=== PATIENT | male | born 1960 | race Caucasian/White ===

== ENCOUNTER 2018-05-16 16:34 | Inpatient (IN) ==
[2018-05-16] MEDS ORDERED: LORazepam 0.5 MG Tablet PO PRN (21:03)
[2018-05-16] MEDS ORDERED: LORazepam 1 MG Tablet PO PRN (21:03)
[2018-05-16] MEDS ORDERED: Aluminum/Magnesium/Simethacone Susp 30 ML UDC PO PRN (21:03)
[2018-05-16] MEDS: Acetaminophen 325 MG Tablet PO PRN (21:29)
--- NOTE | 2018-05-17 11:09 | P.HPPSY ---
Provisional Diagnosis Admission Date: May 16, 2018 17:49 [place] I.: Adjustment disorder with depressed mood Competence Certification of Person's Competence To Provide Express and Informed Consent I have personally examined Marshall Pierce, a person being served at [facility] on, May 17, 2018 1055. Express and informed consent means consent voluntarily given in writing, by a competent person, after sufficient explanation and disclosure of the subject matter involved to enable the person to make a knowing and willful decision without any element of force, fraud, deceit, duress, or other form of constraint or coercion. This person is 18 years of age or older, is not now known to be incompetent to consent to treatment with a guardian advocate, and does not have a health care surrogate or proxy currently making medical treatment decisions. I have found this person to be one of the following: [xxx] Competent to provide express and informed consent, as defined above, for voluntary admission to this facility and is competent to provide express and informed consent for treatment. He/she has the consistent capacity to make well reasoned, willful, and knowing decisions concerning his or her medical or mental health treatment. The person fully and consistently understands the purpose of the admission for examination/placement and is fully capable of personally exercising all rights assured under [place] Incompetent to provide express and informed consent to voluntary admission, and this is incompetent to provide express and informed consent to treatment. The person must be transferred to involuntary status and a petition for a guardian advocate filed with the Circuit Court. [] Refusing to provide express and informed consent to voluntary admission but is competent to provide express and informed consent for treatment. The person must be discharged or transferred to involuntary status. Form shall be completed within 24 hours of a person's arrival at the receiving facility and filed in the clinical record of each person: 1. Admitted on a voluntary basis 2. Permitted to provide express and informed consent to his/her own treatment 3. Allowed to transfer from involuntary to voluntary status 4. Prior to permitting a person to consent to his or her own treatment after having been previously found incompetent to consent to treatment. History of Present Illness Capacity: Has capacity Chief Complaint: Suicide attempt by overdose of amitriptyline History of Present Illness: The patient is a 57-year-old male who was admitted to the psychiatric unit at [facility] after being transferred from [facility] where he was Hernandes acted by a physician. The patient admits to taking an overdose of Elavil 25 mg unknown amount while sitting bedside in his mother's hospital room at [facility]. Medical records indicate that the patient required intubation and a 4-day admission to the ICU before being medically cleared and transferred for psychiatric evaluation and treatment. The patient's mother reportedly was very ill and 1 day after the patient's suicide attempt. The patient is aware of her and is expressing sincere regret for his behaviors and a sincere desire to be discharged in time to attend her this week. The patient admits to worsening feelings of hopelessness and helplessness in the weeks leading up to his suicide attempt in association with "I spent a lot of time trying to change things from my mother but nothing worked I felt helpless for a split second I thought I needed to be with her." Patient reports that as he started to feel the effects of the medications he became scared and regretful of what he had done and he alerted his mother's nurse before falling asleep. The patient repeatedly expressed how tera he feels to be alive and insists that he will never do anything like that again. As for his mood, the patient denies any history of depressive episodes characterizes his mood in the 2 weeks leading up to this this event as reactive but becoming more sad as he realized his mother's life was coming to the end. He reports chronic problems with restless sleep but denies any anhedonia, fatigue, change in appetite, or thoughts of suicide prior to the event. As for anxiety, patient reports situational anxiety related to life stressors but denies that it has ever impaired his ability to cope or to perform at his work. As for psychosis, the patient denies any history of hallucinations or delusions. Past psychiatric history: Past Diagnoses: Patient denies any past diagnoses of depression or anxiety Hospitalizations: Denies Suicidal behavior: Denies prior suicidal behavior Past psychotropic medication trials: Patient reports being prescribed Elavil 25 mg take 3 at bedtime as needed for insomnia. Patient reports he was only using this sporadically because he did not like the effects of somnolence the next day. Outpatient MH treatment: Denies Substance Use Treatment: Denies Abuse/assault history: Denies Family psychiatric history: Denies any history of suicides in his family. His mother was treated for bipolar disorder. Psychosocial history: Patient was born in [place] but raised in [place] since the age of 3. He reports an intact family with a total of 6 boys with him being the fourth out of the 6. 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 He volunteered that he "never pursued a social life" because he was always busy working and taking care of his mother and that this does not bother him. The patient's father in 1990 and his mother never remarried. Patient had a brother who in 2003 from stomach cancer. Patient graduate high school and has some college classes. He never and has no children. 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 Currently lives in the home that was previously occupied by himself and his mother only and I will be occupied by him only. Patient reports good support from his family and friends as evidenced by visits last night on the unit from his brother. The patient gave permission to involve his family in his discharge and safety planning. Substance Use history: Tobacco use: Denies Alcohol use: Denies Cannabis use: Denies Stimulant use: Denies Opiate use: Denies Prescription drug abuse: Denies - Inpatient Certification I certify that the inpatient services were ordered in accordance with Medicare regulations governing the order. This includes certification that hospital inpatient services are reasonable and necessary and in the case of services not specified as inpatient-only under 42 CFR 419.22(n), that they are appropriately provided as inpatient services in accordance to with the 2-midnight benchmark under 43 CFR 412.3(e) I certify that inpatient psychiatric hospital services are medically necessary. Evaluation and treatment and/or diagnostic testing are expected to improve the patient's condition. The patient needs on a daily basis, active treatment furnished directly by or requiring the supervision of inpatient psychiatric facility personnel. Plans for Post Hospital Care: Home Review of Systems All other systems reviewed negative except as stated in HPI Medications and Allergies Active Medications: Active Medications Acetaminophen (Tylenol) 650 mg PO Q4H PRN PRN Reason: Pain 1-5 or Temp >101F Last Admin: 05/16/18 21:29 Dose: 650 mg Al Hydrox/Mg Hydrox/Simethicone (Mag-Al Plus Susp Liq) 30 ml PO Q6H PRN PRN Reason: DYSPEPSIA Al Hydroxide/Mg Hydroxide (Milk Of Magnesia Liq) 30 ml PO QD PRN PRN Reason: Mild Constipation Lorazepam (Ativan) 1 mg PO Q6H PRN PRN Reason: MODERATE TO SEVERE ANXIETY Lorazepam (Ativan) 0.5 mg PO Q12H PRN PRN Reason: MODERATE TO SEVERE ANXIETY Lorazepam (Ativan Inj) 1 mg IM Q6H PRN PRN Reason: MODERATE TO SEVERE ANXIETY Lorazepam (Ativan Inj) 0.5 mg IM Q12H PRN PRN Reason: MODERATE TO SEVERE ANXIETY Nicotine (Habitrol 21 Mg Patch.24 Hr) 1 patch T-DERMAL DAILY JAIDA Last Admin: 05/17/18 08:22 Dose: Not Given Patch Removal (Remove Old Patch) 1 each T-DERMAL HS ONE Stop: 05/17/18 21:01 Allergies Allergy/AdvReac Type Severity Reaction Status Date / Time No Known Allergies Allergy Uncoded 08/20/14 22:49 Exam Vital signs: Vital Signs 05/16/18 17:51 05/16/18 22:55 05/17/18 05:40 Temperature 98 F 98.8 F Pulse Rate 98 H 82 Respiratory Rate 14 16 18 Blood Pressure 128/87 131/84 Pulse Oximetry 95 93 L Intake & Output 05/16/18 05/17/18 05/17/18 18:59 06:59 18:59 Weight 77.2 kg Other: Weight On Admission 77.2 kg Mental Status Examination Appearance: Appropriate Consciousness: Alert Orientation: x4 Motor Activity: Normal gait Speech: Unremarkable Language: Adequate Fund of Knowledge: Adequate Attention and Concentration: Adequate Memory: Unremarkable Mood: Sad Affect: Appropriate Thought Process & Associations: Intact Thought Content: Appropriate Hallucination Type: None Delusion Type: None Suicidal Ideation: No Suicidal Plan: No Suicidal Intention: No Homicidal Ideation: No Homicidal Plan: No Homicidal Intention: No Insight: Adequate Judgment: Impulsive Assessment and Plan - Assessment (1) Adjustment disorder with depressed mood Code(s): F43.21 - Adjustment disorder with depressed mood Status: Acute - Plan Plan: 1. Continue with admission to inpatient psychiatry at [facility]; convert to voluntary/competent legal status. 2. Routine unit precautions. 3. Comfort medications ordered for as needed treatment of constipation, heartburn, diarrhea, and mild pain. 4. Hydroxyzine 50mg po q6H prn anxiety/insomnia. 5. Start melatonin 5 mg at bedtime for treatment of chronic insomnia. 6. Start trazodone 100 mg at bedtime as needed for insomnia. 7. Patient will participate in the unit programming to include group therapies , milieu therapy and recreational therapies. 8. Discharge planning: The patient will need a referral for outpatient counseling to help with his grieving. Collateral involvement of his family will be needed for safety planning. Anticipate discharge tomorrow morning if the patient's mood and behavior remains stable and safety planning can be accomplished. \\ Justification for Continued Inpatient Stay: Patient remains an elevated risk for self-harm as evidenced by recent suicide attempt and continued risk factors from severe grief and recent loss and will require further inpatient stabilization and preparation of a safe discharge plan. Moving patient to a less restrictive environment at this time may result in decompensation.
[2018-05-17] MEDS: Acetaminophen 325 MG Tablet PO PRN ×2 (12:34→17:10)
[2018-05-17] MEDS ORDERED: Melatonin 5 MG Tablet PO SCH (21:00)
[2018-05-17] MEDS ORDERED: traZODone 100 MG Tablet PO PRN (21:00)
[2018-05-18] MEDS: Acetaminophen 325 MG Tablet PO PRN (01:23)
[2018-05-18 05:51] VITALS: BP 120/85; PULSE 101; RESP 18; TEMP 98.8; O2SAT 94
--- NOTE | 2018-05-18 15:37 | P.DSPSY ---
Psychiatry Discharge Summary Inpatient Psychiatric care?: Yes Advance Directives: No Reason for Unknown:: Other Mental Health Advance Directive: No Health Care Proxy: No - Admission Admission Date: May 16, 2018 17:49 - Admission Diagnosis (1) Adjustment disorder with depressed mood Code(s): F43.21 - Adjustment disorder with depressed mood Brief History: The patient is a 57-year-old male who was admitted to the psychiatric unit at [facility] after being transferred from [facility] where he was Hernandes acted by a physician. The patient admits to taking an overdose of Elavil 25 mg unknown amount while sitting bedside in his mother's hospital room at [facility]. Medical records indicate that the patient required intubation and a 4-day admission to the ICU before being medically cleared and transferred for psychiatric evaluation and treatment. The patient's mother reportedly was very ill and 1 day after the patient's suicide attempt. The patient is aware of her and is expressing sincere regret for his behaviors and a sincere desire to be discharged in time to attend her this week. The patient admits to worsening feelings of hopelessness and helplessness in the weeks leading up to his suicide attempt in association with "I spent a lot of time trying to change things from my mother but nothing worked I felt helpless for a split second I thought I needed to be with her." Patient reports that as he started to feel the effects of the medications he became scared and regretful of what he had done and he alerted his mother's nurse before falling asleep. The patient repeatedly expressed how tera he feels to be alive and insists that he will never do anything like that again. As for his mood, the patient denies any history of depressive episodes characterizes his mood in the 2 weeks leading up to this this event as reactive but becoming more sad as he realized his mother's life was coming to the end. He reports chronic problems with restless sleep but denies any anhedonia, fatigue, change in appetite, or thoughts of suicide prior to the event. As for anxiety, patient reports situational anxiety related to life stressors but denies that it has ever impaired his ability to cope or to perform at his work. As for psychosis, the patient denies any history of hallucinations or delusions. Past psychiatric history: Past Diagnoses: Patient denies any past diagnoses of depression or anxiety Hospitalizations: Denies Suicidal behavior: Denies prior suicidal behavior Past psychotropic medication trials: Patient reports being prescribed Elavil 25 mg take 3 at bedtime as needed for insomnia. Patient reports he was only using this sporadically because he did not like the effects of somnolence the next day. Outpatient treatment: Denies Substance Use Treatment: Denies Abuse/assault history: Denies Family psychiatric history: Denies any history of suicides in his family. His mother was treated for bipolar disorder. Psychosocial history: Patient was born in [place] but raised in [place] since the age of 3. He reports an intact family with a total of 6 boys with him being the fourth out of the 6. 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 He volunteered that he "never pursued a social life" because he was always busy working and taking care of his mother and that this does not bother him. The patient's father in 1990 and his mother never remarried. Patient had a brother who in 2003 from stomach cancer. Patient graduate high school and has some college classes. He never and has no children. 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 Currently lives in the home that was previously occupied by himself and his mother only and I will be occupied by him only. Patient reports good support from his family and friends as evidenced by visits last night on the unit from his brother. The patient gave permission to involve his family in his discharge and safety planning. Substance Use history: Tobacco use: Denies Alcohol use: Denies Cannabis use: Denies Stimulant use: Denies Opiate use: Denies Prescription drug abuse: Denies Tobacco Use In Past 30 Days: No How Often Do You Have a Drink Containing Alcohol: Never Hospital Course: 05/17/2018. Initial plan: 1. Continue with admission to inpatient psychiatry at [facility]; convert to voluntary/competent legal status. 2. Routine unit precautions. 3. Comfort medications ordered for as needed treatment of constipation, heartburn, diarrhea, and mild pain. 4. Hydroxyzine 50mg po q6H prn anxiety/insomnia. 5. Start melatonin 5 mg at bedtime for treatment of chronic insomnia. 6. Start trazodone 100 mg at bedtime as needed for insomnia. 7. Patient will participate in the unit programming to include group therapies , milieu therapy and recreational therapies. 8. Discharge planning: The patient will need a referral for outpatient counseling to help with his grieving. Collateral involvement of his family will be needed for safety planning. Anticipate discharge tomorrow morning if the patient's mood and behavior remains stable and safety planning can be accomplished. 05/18/2018: Hospital course: Patient was admitted to a locked, inpatient psychiatric unit. Appropriate precautions were in place throughout patient's hospital stay. Patient was seen and examined on the unit by psychiatry and also visited by counselor. Patient declined the start of psychotropic medications but did use melatonin 5 mg at bedtime last night and reports that it was well tolerated. There was a good response to inpatient treatment plan noted by nursing and provider observations, and the patient reported improvements in mood, anxiety, and there was no evidence of any suicidality or homicidality at time of discharge. Psychiatric follow-up as arranged by counselor. Patient is also to follow up with primary care. I have counseled the patient to abstain from substances of abuse including cannabis and have counseled patient to return to the psychiatric emergency room for any concerning symptoms as part of a general safety plan. Suicide and violence risk assessment on day of discharge both suggest lower imminent risk from mental illness. There are no acute risk factors. He has no current affective disorder and is denying suicidal ideation. There is no evidence of impairment in reality construction. Chronic/static risk factors are minimal (no personal history of multiple suicide attempts and no or family history of suicide/ attempts, no evident substance use disorder). We will bolster protective factors by relinking the patient with outpatient psychiatric services. There is no evidence of self-care deficit at time of discharge. Patient has maximized benefit from this inpatient psychiatric hospital stay. - Discharge Discharge Date: 05/18/18 - Discharge Diagnosis (1) Adjustment disorder with depressed mood Code(s): F43.21 - Adjustment disorder with depressed mood Status: Acute Discharge Disposition: Home - Discharge Time > 30 minutes Mental Status Examination Appearance: Appropriate Consciousness: Alert Orientation: x4 Motor Activity: Normal gait Speech: Unremarkable Language: Adequate Fund of Knowledge: Adequate Attention and Concentration: Adequate Memory: Unremarkable Mood: Sad Affect: Appropriate Thought Process & Associations: Intact Thought Content: Appropriate Hallucination Type: None Delusion Type: None Suicidal Ideation: No Suicidal Plan: No Suicidal Intention: No Homicidal Ideation: No Homicidal Plan: No Homicidal Intention: No Insight: Adequate Judgment: Adequate Discharge/Advance Care Plan - Results Vital Signs: Last Vital Signs Temp 98.8 F 05/18/18 05:51 Pulse 101 H 05/18/18 05:51 Resp 18 05/18/18 05:51 BP 120/85 05/18/18 05:51 Pulse Ox 94 L 05/18/18 05:51 Lab Results: None to report Summary of Procedures: None ordered Pending Results: None - Medications Number of antipsychotic medications at discharge: 0 - Discharge Care Plan Goals to Promote Your Health: * To prevent worsening of your condition and complications * To maintain your health at the optimal level Directions to Meet Your Goals: Take your medications as prescribed Follow your dietary instruction Follow activity as directed Keep your appointments as scheduled Take your immunizations and boosters as scheduled If your symptoms worsen call your PCP, if no PCP go to Urgent Care Center or Emergency Room For 30/11 questions related to your inpatient stay or results of tests pending at discharge, please contact Dr. Dewayne Sesay MD at Smoking is Dangerous to Your Health. Avoid second hand smoking
== END 2018-05-18 12:30 | disposition home or self-care (01) | DRG 881 ==
LOC: H270 17:49
PROVIDERS: ADMIT Psychiatry & Neurology Psychiatry; ATTEND Psychiatry & Neurology Psychiatry